=== PATIENT | male | born 1985 | race Two or more races ===

== ENCOUNTER 2023-04-15 19:36 | Emergency (ER) | payer OTHER ==
[~2023-04-15] VITALS: Ht 180.3 cm; Wt 116.6 kg
[2023-04-16] MEDS ORDERED: LIDOCAINE 1% HCL (LOCAL ANESTH.) INJ 20ML MDV IJ ONE (01:00)
[2023-04-16 01:04] VITALS: BP 151/87; TEMP 99.2
[2023-04-16 01:05] VITALS: PULSE 84; RESP 18; O2SAT 97
[2023-04-16] MEDS ORDERED: CEPH500C PO (01:28)
== END 2023-04-16 01:54 | disposition home or self-care (01) ==
LOC: EEVIPCON 19:36 → ER 19:36
DX: S91.202A Unspecified open wound of left great toe with damage to nail, initial encounter (principal); I10 Essential (primary) hypertension; E11.9 Type 2 diabetes mellitus without complications; E78.5 Hyperlipidemia, unspecified; X58.XXXA Exposure to other specified factors, initial encounter; Y93.89 Activity, other specified; Y92.89 Other specified places as the place of occurrence of the external cause; Y99.8 Other external cause status
CPT/HCPCS: 11730; 99284; J2001